=== PATIENT | male | born 1965 | race Caucasian/White ===

== ENCOUNTER 2020-05-13 11:45 | Emergency (ER) | payer MEDICAID ==
[~2020-05-13] VITALS: Ht 182.9 cm; Wt 117.5 kg
[2020-05-13 12:01] VITALS: Ht 182.9 cm; Wt 117.5 kg
[2020-05-13] MEDS ORDERED: LASIX20 MG PO ×2 (12:19→12:34)
[2020-05-13] MEDS ORDERED: LOPRESSOR100 M1 PO (12:19)
[2020-05-13] MEDS ORDERED: PRILOSEC OTC20 M1 PO (12:19)
[2020-05-13] MEDS ORDERED: POTASSIUM CHLO10 MEQ PO (12:34)
[2020-05-13] MEDS ORDERED: OMEPRAZOLE40 M1 PO (12:34)
[2020-05-13 13:10] LABS: BASOPHIL % 0.8 % (0.2-1.5); PLATELET COUNT 183 x10^3mcL (152-348); RED CELL DISTRIBUTION WIDTH 13.2 % (12.1-16.2)
[2020-05-13 13:25] LABS: CALCIUM 8.6 mg/dL (8.5-10.1); CARBON DIOXIDE 28.9 mmol/L (21-32); CHLORIDE SERUM 105 mmol/L (98-107); CREATININE SERUM 0.7 mg/dL (0.7-1.3); GFR1 > 60 mL/min; GLUCOSE SERUM 109 mg/dL (74-106); POTASSIUM SERUM 3.9 mmol/L (3.5-5.1); SODIUM SERUM 137 mmol/L (136-145)
[2020-05-13 13:29] LABS: ALKALINE PHOSPHATASE 72 U/L (46-116); ALT/SGPT 24 U/L (16-63); AST/SGOT 17 U/L (15-37); BILIRUBIN TOTAL 1.4 mg/dL (0.20-1.00); LIPASE 126 IU/L (73-393); TOTAL PROTEIN, SERUM 7.8 g/dL (6.4-8.2)
[2020-05-13] MEDS ORDERED: GOOD NEIGHBOR M25 MG PO (13:44)
[2020-05-13 13:54] VITALS: BP 141/81
== END 2020-05-13 13:55 | disposition home or self-care (01) ==
LOC: ED 11:45
PROVIDERS: Emergency Medicine
DX: H81.10 Benign paroxysmal vertigo, unspecified ear (principal); R51.9 Headache, unspecified; E86.0 Dehydration; I10 Essential (primary) hypertension; Z88.5 Allergy status to narcotic agent
CPT/HCPCS: 83880; J8597